=== PATIENT | male | born 1980 | race Caucasian/White ===

== ENCOUNTER 2021-10-15 18:19 | Emergency (ER) | payer OTHER ==
[~2021-10-15] VITALS: Ht 177.8 cm; Wt 81.7 kg
[2021-10-15 18:41] VITALS: BP 120/76
[2021-10-15] MEDS ORDERED: NOHOMEMEDICATIONS (18:44)
== END 2021-10-15 22:15 | disposition left against medical advice (07) ==
LOC: M.ERS 18:19
DX: M79.645 Pain in left finger(s) (principal); Z53.21 Procedure and treatment not carried out due to patient leaving prior to being seen by health care provider